=== PATIENT | male | born 1950 | race Caucasian/White ===

== ENCOUNTER → 2020-06-30 | Outpatient (CLI) | payer OTHER | END | disposition home or self-care (01) | LOC: CT 07:53 | PROVIDERS: ATTEND Nurse Practitioner Family | DX: N28.1 Cyst of kidney, acquired (principal); K57.30 Diverticulosis of large intestine without perforation or abscess without bleeding; R31.9 Hematuria, unspecified ==

== ENCOUNTER → 2021-06-23 | Outpatient (CLI) | payer OTHER | END | disposition home or self-care (01) | LOC: CT 12:34 | PROVIDERS: ATTEND Nurse Practitioner Family | DX: R91.8 Other nonspecific abnormal finding of lung field (principal); J92.9 Pleural plaque without asbestos; I25.10 Atherosclerotic heart disease of native coronary artery without angina pectoris; Z77.090 Contact with and (suspected) exposure to asbestos ==